=== PATIENT | female | born 1980 | race Caucasian/White ===

== ENCOUNTER 2016-05-16 18:00 | Emergency (ER) | payer SELFPAY ==
[2016-05-16 21:28] VITALS: BP 182/121
--- NOTE | 2016-05-26 15:09 | UC ---
Vinicio Castro SooYoung, scribed for Meg Calvo MD on 05/16/16 at 2057 . General HPI - HPI Summary HPI Summary: A 35 y/o F presents to E with c/o ongoing productive cough and congestion for past 10 days. Phlegm is green. Associated sx: R ear pain, v/d, CP with cough. Denies hematuria. She last took her decongestant at 1100 today. She states her boss was dx with bronchitis today. Pt is a smoker, trying to quit. - History of Current Complaint Chief Complaint: UCEar Stated Complaint: COUGH Time Seen by Provider: 05/16/16 20:41 Hx Obtained From: Patient Onset/Duration: Lasting Days, Still Present Timing: Constant Onset Severity: Moderate Associated Signs & Symptoms: Positive: Chest Pain - with cough, Diarrhea, Vomiting, Other - pos: ear pain. - Allergy/Home Medications Allergies/Adverse Reactions: Allergies Allergy/AdvReac Type Severity Reaction Status Date / Time No Known Allergies Allergy Verified 05/16/16 19:27 Home Medications: Home Medications Dextromethorphan-Phenylephrine [Sudafed PE Preesure+Pain+ 10-5-325 mg] 2 tab PO PRN 05/16/16 [History] Ibuprofen TAB* [Advil TAB*] 600 mg PO PRN 05/16/16 [History] PMH/Surg Hx/FS Hx/Imm Hx Previously Healthy: Yes Neurological History Of: Denies: Dementia Cancer History Of: Denies: Breast Cancer - Surgical History Surgical History: Yes Surgery Procedure, Year, and Place: [facility] SURGERY - Family History Known Family History: Positive: Cardiac Disease, Hypertension - Social History Occupation: Unemployed - OTHER Lives: With Family Alcohol Use: Occasionally Substance Use Type: None Smoking Status (MU): Current Every Day Smoker Type: Cigarettes Amount Used/How Often: 2 CIG/DAY Review of Systems ENT: Ear Ache Respiratory: Cough Cardiovascular: Chest Pain - with cough Gastrointestinal: Vomiting, Diarrhea All Other Systems Reviewed And Are Negative: Yes Physical Exam Triage Information Reviewed: Yes Appearance: Well-Appearing, Well-Nourished Vital Signs: Initial Vital Signs Temp 98.5 F 05/16/16 19:22 Pulse 80 05/16/16 19:22 Resp 16 05/16/16 19:22 BP 186/120 05/16/16 19:22 Pulse Ox 97 05/16/16 19:22 Vital Signs Reviewed: Yes Eye Exam: Normal ENT Exam: Other ENT: Positive: TM dull - au Neck exam: Normal Respiratory: Positive: Chest non-tender, No accessory muscle use, Rhonchi, Wheezing Cardiovascular Exam: Normal Abdominal Exam: Normal Musculoskeletal Exam: Normal Neurological Exam: Normal Psychological Exam: Normal Skin Exam: Normal - Additional Comments Appearance: Well-Nourished Eye Exam: Normal ENT Exam: R TM IS ERYTHEMATOUS WITH BAROTRAUMA Neck exam: Normal, no adenopathy appreciated Respiratory Exam: Chest non-tender, Lungs clear, Normal breath sounds, No respiratory distress, No accessory muscle use Cardiovascular Exam: Normal Cardiovascular: RRR, No Murmur, Pulses Normal - sitting up. heart rate correlates w left radial pulse, Brisk Capillary Refill Abdominal Exam: Normal Abdomen Description: Nontender, No organomegaly, Soft Bowel Sounds: Present Musculoskeletal Exam: Normal Musculoskeletal: Strength Intact Neurological Exam: Normal: nonfocal, grossly intact Psychological Exam: Normal: conversing easily and appropriately Skin Exam: Normal: no visible or reported rash Course/Dx - Course Course Of Treatment: No h/a, no vis changes. No cp / sob. No dark urine. Reviewed with Ms. Nichole the importance of d/c-ing decongestants, and the importance of close f/u with a pcp kuldip. To ED for worse or new symptoms. BP likely acute on possible chronic elevation 2/2 decongestant. Will need bp check and management as needed off-decongestant. Will rx bronchitis via zithromax, humidified air etc. Questions answered as posed, to the best of my ability. - Differential Dx - Multi-Symptom Provider Diagnoses: Bronchitis. Hypertension Discharge - Discharge Plan Condition: Stable Disposition: HOME Prescriptions: Azithromyxin JOHN (NF) [Z-John (Zithromax) 250 mg tabs #6] 2 tab PO .TODAY, THEN 1 DAILY #6 tab Patient Education Materials: Acute Bronchitis (ED), Hypertension (ED) Referrals: Lauren Cardenas MD [Primary Care Provider] - [facility] [Outside] Additional Instructions: Please obtain a Primary Care Physician. Follow up as soon as possible, if possible recommend within one week for follow-up care. STOP DECONGENSTANTS. DECREASE CAFFEINE. AVOID SMOKING. Try using humidified air, such as warm showers. If you experience worsening symptoms, including blood in the urine and or chest pain unrelated to cough, go to the Emergency Room. The documentation as recorded by the Vinicio morfin SooYoung accurately reflects the service I personally performed and the decisions made by me, Meg Calvo MD.
== END 2016-05-16 21:05 | disposition home or self-care (01) ==
LOC: UCEAST 18:00
DX: J40 Bronchitis, not specified as acute or chronic (principal); I10 Essential (primary) hypertension; F17.210 Nicotine dependence, cigarettes, uncomplicated
CPT/HCPCS: 99212; G0463

== ENCOUNTER 2019-05-27 01:11 | Emergency (ER) | payer BC ==
--- NOTE | 2019-05-27 01:29 | ED ---
Hypertension - HPI Summary HPI Summary: 38-year-old female with a significant past medical history of hypertension presents to the emergency department today stating "I think I have a sinus infection but my blood pressure was high and web M.D. thought I was in stroke ranges." Patient states she did not measure her blood pressure prior to arrival but states she knows when she has high blood pressure because she feels warm and she spots. Patient states she has these symptoms today which began this morning. Patient otherwise feels well and denies fever, chest pain, abdominal pain, pain with urination, headache, dorene blood and urine, weakness. Patient denies recreational drug use but does endorse having "a few drinks this evening". Surgical history and family history is not contributory. - History of Current Complaint Chief Complaint: EDHypertension Stated Complaint: BP HIGH PER PT Time Seen by Provider: 05/27/19 01:15 Hx Obtained From: Patient Hx Last Menstrual Period: 1 WEEK AGO Onset/Duration: Started Hours Ago Timing: Constant Associated Signs & Symptoms: Vision Changes, Headaches - Allergies/Home Medications Allergies/Adverse Reactions: Allergies Allergy/AdvReac Type Severity Reaction Status Date / Time Penicillins Allergy Mild Vomiting Verified 05/27/19 01:21 Home Medications: Home Medications lisinopriL [Lisinopril] 20 mg PO DAILY 05/27/19 [History Confirmed 05/27/19] PMH/Surg Hx/FS Hx/Imm Hx Endocrine/Hematology History: Denies: Hx Diabetes Neurological History: Denies: Hx Dementia - Cancer History Hx Chemotherapy: No Hx Radiation Therapy: No - Surgical History Surgery Procedure, Year, and Place: [facility] SURGERY Infectious Disease History: No Infectious Disease History: Denies: Traveled Outside the [place] in Last 30 Days - Family History Known Family History: Positive: Cardiac Disease, Hypertension Family History: FHx of breast CA - grandmother - Social History Alcohol Use: Occasionally Substance Use Type: Reports: None Smoking Status (MU): Current Every Day Smoker Type: Cigarettes Amount Used/How Often: 2 CIG/DAY Review of Systems Constitutional: Negative Positive: Blurred Vision. Negative: Photophobia, Drainage ENT: Negative Cardiovascular: Negative Respiratory: Negative Gastrointestinal: Negative Genitourinary: Negative Musculoskeletal: Negative Skin: Negative Positive: Headache. Negative: Weakness, Paresthesia, Numbness, Syncope, Slurred Speech Psychological: Normal All Other Systems Reviewed And Are Negative: Yes Physical Exam Triage Information Reviewed: Yes Vital Signs On Initial Exam: Initial Vitals Temp Pulse Resp BP Pulse Ox 97.1 F 100 17 142/102 100 05/27/19 01:16 05/27/19 01:16 05/27/19 01:16 05/27/19 01:16 05/27/19 01:16 Vital Signs Reviewed: Yes Appearance: Positive: Well-Appearing, No Pain Distress, Well-Nourished Skin: Positive: Warm, Skin Color Reflects Adequate Perfusion Eyes: Positive: EOMI, WARREN ENT: Positive: Hearing grossly normal Respiratory/Lung Sounds: Positive: Clear to Auscultation, Breath Sounds Present Cardiovascular: Positive: RRR, S1, S2 Abdomen Description: Positive: Nontender, Soft Bowel Sounds: Positive: Present Musculoskeletal: Positive: Strength/ROM Intact Neurological: Positive: Sensory/Motor Intact, Alert, Oriented to Person Place, Time, Facial Symmetry, Speech Normal Psychiatric: Positive: Normal, Affect/Mood Appropriate AVPU Assessment: Alert Procedures - Sedation Patient Received Moderate/Deep Sedation with Procedure: No Diagnostics - Vital Signs Vital Signs Temp Pulse Resp BP Pulse Ox 05/27/19 01:16 97.1 F 100 17 142/102 100 - Laboratory Result Diagrams: 05/27/19 01:38 05/27/19 01:38 Lab Statement: Any lab studies that have been ordered have been reviewed, and results considered in the medical decision making process. Hypertension Course/Dx - Course Course Of Treatment: Patient was evaluated in the emergency department today for hypertension. Vitals noted. Patient's blood pressure is 142/102 mmHg. EKG was done promptly which shows no evidence of STEMI. Normal sinus rhythm at a rate of 93 bpm. Normal DC and QT intervals. Mild left axis deviation. T wave inversions in lead 3. There are no prior EKGs available for comparison. Laboratory studies returned showing white blood cell count 11.3 which is mildly elevated with no left shift. No evidence of anemia, electrolyte abnormalities, elevated renal function, elevated liver function. Patient's leukocytosis is mild and likely benign and there is no further evidence of infectious pathology. Troponin 0.01. Beta HCG negative. Pt states she added water to her urine sample. Labs are negative for acute pathology. Patient remains asymptomatic and her blood pressure is not at concerning levels. Patient discharged with outpatient follow-up. Patient has a normal neurological exam with normal vitals with normal laboratory studies. - Diagnoses Differential Diagnosis/HQI PQRI: Drug Withdrawal, Hypertension, Hypertensive Crisis, Hypertensive Urgency, Renal Disease Provider Diagnoses: Elevated blood pressure reading Discharge ED - Sign-Out/Discharge Documenting (check all that apply): Patient Departure - Discharge Plan Condition: Stable Disposition: HOME Patient Education Materials: Hypertension (ED) Forms: *Work Release Referrals: Dari Cornelius MD [Primary Care Provider] - 3 Days Additional Instructions: You were seen in the emergency department today for high blood pressure. Labs were done and there was no evidence of acute medical problems requiring intervention at this time. Please follow up with your PCP in 3-5 days for further evaluation and management. Please return to the emergency department if you develop any new or worsening symptoms. - Billing Disposition and Condition Condition: STABLE Disposition: Home - Attestation Statements Provider Attestation: I was available for consult. This patient was seen by the GLENDY. The patient was not presented to, seen by, or examined by me. Onur Sy MD
[2019-05-27 01:47] LABS: ABS Basophils 0.1 10^3/ul (0-0.2); ABS Lymphocytes 3.3 10^3/ul (1.0-4.8); ABS Monocytes 1.2 10^3/ul (0-0.8); ABS Neutrophils 6.7 10^3/ul (1.5-7.7); Eosinophil % 0.3 %; Hematocrit 43 % (35-47); Mean Corpuscular HGB Conc 35 g/dL (31-36); Mean Corpuscular Hemoglobin 35 pg (27-31); Mean Corpuscular Volume 99 fL (80-97); Platelet Count 325 10^3/uL (150-450); Red Blood Count 4.31 10^6 /uL (3.70-4.87); Red Cell Distribution Width 13 % (10-15); White Blood Count 11.3 10^3/uL (3.5-10.8)
[2019-05-27 02:04] LABS: Albumin 4.5 g/dL (3.2-5.2); Albumin/Globulin Ratio 1.4 (1-3); BUN/Creatinine Ratio 18.5 (8-20); Calcium 9.5 mg/dL (8.6-10.3); EGFR African American 122.8 (>60); EGFR Non-African American 101.5 (>60); Globulin 3.2 g/dL (2-4); Potassium 3.5 mmol/L (3.5-5.0); Total Bilirubin 0.3 mg/dL (0.2-1.0); Total Protein 7.7 g/dL (6.4-8.9)
[2019-05-27 02:06] LABS: Troponin I 0.01 ng/mL (<0.03)
[2019-05-27 02:10] LABS: HCG Pregnancy 3.8 mIU/mL
[2019-05-27 02:26] LABS: Urine Appearance Clear; Urine Bilirubin Negative (Negative); Urine Blood 1+ (Negative); Urine Color Colorless; Urine Glucose Negative (Negative); Urine Ketones Negative (Negative); Urine Nitrite Negative (Negative); Urine Protein Negative (Negative); Urine Specific Gravity 1.002 (1.010-1.030); Urine Urobilinogen Negative (Negative)
[2019-05-27 02:27] VITALS: BP 125/85
[2019-05-27 02:30] LABS: Urine Bacteria Absent (Absent); Urine Red Blood Cell Trace(0-2/hpf) (Absent); Urine Squamous Epithelial Cell Present (Absent); Urine White Blood Cell Trace(0-5/hpf) (Absent)
--- NOTE | 2019-05-30 15:58 | ED ---
Imaging and Labs Follow Up Follow Up Type: Labs/Cultures Labs/Culture Result: urine culture growing 10-25K e. coli. Patient Communication/Plan: No report of urinary sxs on ed note. Will not treat at this time. Provider Diagnoses: Elevated blood pressure reading
== END 2019-05-27 02:26 | disposition home or self-care (01) ==
LOC: ED 01:11
DX: I10 Essential (primary) hypertension (principal); R51 Headache; Z88.0 Allergy status to penicillin; F17.210 Nicotine dependence, cigarettes, uncomplicated; H53.8 Other visual disturbances
CPT/HCPCS: 36415; 80053; 81003; 81015; 84484; 84702; 85025; 87077; 87086; 87186; 93005; 99283